=== PATIENT | female | born 1955 | race Caucasian/White ===

== ENCOUNTER 2024-01-15 08:50 | Outpatient (CLI) | payer OTHER | END 2024-01-15 08:51 | disposition home or self-care (01) | LOC: SCSMRI 08:50 | PROVIDERS: ATTEND Family Medicine | DX: K86.9 Disease of pancreas, unspecified (principal); K76.9 Liver disease, unspecified; K66.8 Other specified disorders of peritoneum; R18.8 Other ascites | CPT/HCPCS: 74183 ==